=== PATIENT | female | born 1995 | race Caucasian/White ===

== ENCOUNTER → 2017-01-31 13:25 | Emergency (ER) | payer SELFPAY | END | disposition home or self-care (01) | LOC: OH 13:25 | DX: Z02.5 Encounter for examination for participation in sport (principal) ==

== ENCOUNTER 2017-02-14 11:41 | Emergency (ER) | payer OTHER ==
[2017-02-14 11:55] VITALS: BP 108/70
--- NOTE | 2017-02-14 12:16 | UC ---
Throat Pain/Nasal Charan HPI - HPI Summary HPI Summary: sore throat and fever x 1 day no nasal congestion , no cough + left mid back pain - History of Current Complaint Chief Complaint: UCGeneralIllness Stated Complaint: CHEST PAIN Time Seen by Provider: 02/14/17 12:02 Hx Obtained From: Patient Hx Last Menstrual Period: 02/14/17 ?: No Onset/Duration: Gradual Onset, Lasting Weeks - 3, Worse Since Severity: Severe Cough: Nonproductive Associated Signs & Symptoms: Positive: Fever. Negative: Dysphagia, FB Sensation , Drooling, Wheezing, Hoarseness, Sinus Discomfort, Nasal Discharge, Rash - Allergies/Home Medications Allergies/Adverse Reactions: Allergies Allergy/AdvReac Type Severity Reaction Status Date / Time No Known Allergies Allergy Verified 02/14/17 11:49 Home Medications: Home Medications Vlvhtrr-Dckiywmemuuvh-Pbyueyio [Acetaminophen/Aspirin/Caf 250-250-65 mg] 2 tab PO ONCE 02/14/17 [History Confirmed 02/14/17] Levonorgestrel & Eth Estradiol [Lutera 0.1-20 mg-Mcg] 1 tab PO DAILY 02/14/17 [ History Confirmed 02/14/17] PMH/Surg Hx/FS Hx/Imm Hx Previously Healthy: Yes - Surgical History Surgical History: None - Family History Known Family History: Negative: Diabetes - Social History Alcohol Use: Occasionally Substance Use Type: Marijuana Substance Use Comment - Amount & Last Used: Occasionally Smoking Status (MU): Never Smoked Tobacco - Immunization History Most Recent Influenza Vaccination: Not the 2016/2017 Season Review of Systems Constitutional: Fever, Chills, Fatigue Skin: Negative Eyes: Negative ENT: Negative Respiratory: Cough Cardiovascular: Negative Genitourinary: Dysuria All Other Systems Reviewed And Are Negative: Yes Physical Exam Triage Information Reviewed: Yes Appearance: Well-Appearing, No Pain Distress, Well-Nourished Vital Signs: Initial Vital Signs Temp 101.3 F 02/14/17 11:47 Pulse 112 02/14/17 11:47 Resp 16 02/14/17 11:47 BP 108/70 02/14/17 11:47 Pulse Ox 97 02/14/17 11:47 Vital Signs Reviewed: Yes Eyes: Positive: Conjunctiva Clear ENT: Positive: Normal ENT inspection, Hearing grossly normal, Pharyngeal erythema, TMs normal. Negative: Nasal congestion, Nasal drainage Neck: Positive: Supple, Nontender, No Lymphadenopathy Respiratory: Positive: Chest non-tender, Lungs clear, Normal breath sounds Abdomen Description: Positive: Nontender, No Organomegaly, Soft Bowel Sounds: Positive: Present Throat Pain/Nasal Course/Dx - Differential Dx/Diagnosis Provider Diagnoses: viral pharyngitis Discharge - Discharge Plan Condition: Stable Disposition: HOME Patient Education Materials: Viral Syndrome (ED) Referrals: Non Staff,Doctor [Primary Care Provider] - If Needed Additional Instructions: negative strep / negative influenza cont. with rest, increase fluid,, Tylenol as needed for pain and fever
== END 2017-02-14 12:46 | disposition home or self-care (01) ==
LOC: UCCORT 11:41
DX: J02.9 Acute pharyngitis, unspecified (principal); M54.6 Pain in thoracic spine; F12.90 Cannabis use, unspecified, uncomplicated
CPT/HCPCS: 87502; 87651; 99211; G0463

== ENCOUNTER 2017-08-01 15:49 | Emergency (ER) | payer OTHER ==
[2017-08-01 17:49] VITALS: BP 120/71
--- NOTE | 2017-08-01 18:07 | UC ---
Complaint Female HPI - HPI Summary HPI Summary: 22 female presents with dysuria, hematuria, urgency and frequency that has been ongoing for the past 2 days, worse today. Denies fever, abdominal pain, back pain and genitalia symptoms. No vaginal discharge, itching or bleeding. Thinks she has a UTI, has had them in the past. No other complaints. No PMHx. - History Of Current Complaint Chief Complaint: UCGU Stated Complaint: URINARY Time Seen by Provider: 08/01/17 17:48 Hx Obtained From: Patient Hx Last Menstrual Period: 07/16/17 Onset/Duration: Sudden Onset, Lasting Days, Still Present, Worse Since Timing: Intermittent - with urination Severity Initially: Mild Severity Currently: None Pain Intensity: 0 Pain Scale Used: 0-10 Numeric Character: Burning Aggravating Factor(s): Urination Alleviating Factor(s): Nothing Associated Signs And Symptoms: Positive: Negative - Allergies/Home Medications Allergies/Adverse Reactions: Allergies Allergy/AdvReac Type Severity Reaction Status Date / Time No Known Allergies Allergy Verified 08/01/17 17:46 PMH/Surg Hx/FS Hx/Imm Hx - Additional Past Medical History Additional PMH: Denies PMHx - Surgical History Surgical History: None - Family History Known Family History: Negative: Diabetes - Social History Alcohol Use: Occasionally Substance Use Type: None Substance Use Comment - Amount & Last Used: Occasionally Smoking Status (MU): Never Smoked Tobacco - Immunization History Most Recent Influenza Vaccination: Not the Season Review of Systems Constitutional: Negative Respiratory: Negative Cardiovascular: Negative Genitourinary: Dysuria, Hematuria, Frequency, Urgency All Other Systems Reviewed And Are Negative: Yes Physical Exam Triage Information Reviewed: Yes Appearance: Well-Appearing, No Pain Distress, Well-Nourished Vital Signs: Initial Vital Signs Temp 99 F 08/01/17 17:44 Pulse 85 08/01/17 17:44 Resp 14 08/01/17 17:44 BP 120/71 08/01/17 17:44 Pulse Ox 100 08/01/17 17:44 Vital Signs Reviewed: Yes Eyes: Positive: Conjunctiva Clear Respiratory: Positive: Chest non-tender, Lungs clear, Normal breath sounds Cardiovascular Exam: Normal Cardiovascular: Positive: RRR, No Murmur Abdomen Description: Positive: Nontender, Soft. Negative: CVA Tenderness (R), CVA Tenderness (L) Bowel Sounds: Positive: Present Musculoskeletal: Positive: Strength Intact Neurological: Positive: Alert Complaint Female Dx - Course Course Of Treatment: blood and leuk in urinalysis however due to patient symptoms will begin treamtent and wait for urine culture. deferred pelvic. no other symptoms or complaints. no other concerns. normal vitals. macrobid and increase fluid intake, cranberry juice. follow up with pcp. aware of owrsening signs and symptoms to watch out for. - Differential Dx/Diagnosis Differential Diagnosis/HQI/PQRI: Sexually Transmitted Disease, Ureteral Stone, Urinary Tract Infection Provider Diagnoses: UTI Discharge - Discharge Plan Condition: Good Disposition: HOME Prescriptions: Nitrofurantoin Macrocrystals* [Macrodantin*] 100 mg PO BID #14 cap Patient Education Materials: Urinary Tract Infection in Women (ED) Referrals: Non Staff,Doctor [Primary Care Provider] - Additional Instructions: Take prescribed medication as directed. Increase fluid intake. Any new or worsening symptoms please seek medical attention, as discussed. Follow up with PCP.
== END 2017-08-01 18:14 | disposition home or self-care (01) ==
LOC: UCCORT 15:49
DX: N39.0 Urinary tract infection, site not specified (principal)
CPT/HCPCS: 81003; 87086; 99212; G0463